=== PATIENT | female | born 1975 | race Caucasian/White ===

== ENCOUNTER → 2016-08-09 | Outpatient (CLI) | payer OTHER ==
[~2016-08-09] MED LIST: CALCIUM + VITA1 EACH PO; DEXILANT60 MG PO; FEXOFENADINE-P1 EACH PO; FLOVENT DISKUS50 MCG INH; GUMMI BEAR MUL1 EACH PO; KLOR-CON M2020 MEQ PO; LABETALOL HCL100 MG PO; LIPITOR TAB 1010 MG PO; METFORMIN HCL500 MG PO; MOBIC7.5 MG PO; NIFEDICAL XL30 MG PO; NORCO 7.5-3251 EACH PO
== END ==
LOC: KOH-I 14:06
DX: G56.00 Carpal tunnel syndrome, unspecified upper limb (principal)
CPT/HCPCS: 72040

== ENCOUNTER → 2021-02-11 | Outpatient (CLI) | payer BC | LOC: MAMO 14:23 | DX: Z12.31 Encounter for screening mammogram for malignant neoplasm of breast (principal) | CPT/HCPCS: 77063; 77067 ==

== ENCOUNTER → 2021-02-28 | Outpatient (CLI) | payer BC | LOC: EXRD 15:37 | DX: E03.9 Hypothyroidism, unspecified (principal); E04.2 Nontoxic multinodular goiter | CPT/HCPCS: 76536 ==

== ENCOUNTER → 2021-10-06 | Outpatient (CLI) | payer BC | LOC: KOH-I 13:57 | DX: M25.562 Pain in left knee (principal); M17.12 Unilateral primary osteoarthritis, left knee | CPT/HCPCS: 73562 ==